=== PATIENT | female | born 1925 | race Caucasian/White ===

== ENCOUNTER → 2016-03-10 | Outpatient (CLI) | payer OTHER ==
[~2016-03-10] MED LIST: ALBU1AER9 INH; CALCTAB7 PO; CYAN500T PO; LACTCAP PO; LEVO125T72 PO; LORA10TA5 PO; MULTTAB PO; RANI150T3 PO; TRAZ150T64 PO
[2016-03-10 17:08] LABS: BASO % 0.4 %; BASO ABS # 0.02 K/uL (0-0.2); COMPLETE YES; EOS % 0.9 %; HEMATOCRIT 35.5 % (37-47); LYMPH % 28.5 %; LYMPH ABS # 1.29 K/uL (1.2-3.4); MEAN CELL VOLUME 89.2 fL (80-100); MEAN CORPUSCULAR HEMOGLOBIN 30.2 pg (25-34); MEAN CORPUSCULAR HGB CONC 33.8 g/dl (32-36); MEAN PLATELET VOLUME 11.7 fL (7.4-10.4); MONO % 13.9 %; NEUT % 56.3 %; PLATELET COUNT 254 K/uL (130-400); RED BLOOD COUNT 3.98 M/uL (4.2-5.4); WHITE BLOOD COUNT 4.52 K/uL (4.8-10.8)
[2016-03-10 17:21] LABS: ALT/SGPT 17 U/L (12-78); BLOOD UREA NITROGEN 11 mg/dl (7-18); CALCIUM 8.9 mg/dl (8.5-10.1); CARBON DIOXIDE 27 mmol/L (21-32); CHLORIDE 99 mmol/L (98-107); CHOLESTEROL 167 mg/dl (0-200); GLUCOSE 97 mg/dl (70-99); SODIUM 135 mmol/L (136-145)
[2016-03-10 17:33] LABS: ALB/GLOB RATIO 0.8 (0.9-2); ALKALINE PHOSPHATASE 85 U/L (45-117); AST/SGOT 22 U/L (15-37); CHOLESTEROL/HDL RATIO 3.4; HDL CHOLESTEROL 49 mg/dl; LDL CHOLESTEROL CALCULATED 95 mg/dl; TRIGLYCERIDES 113 mg/dl (0-150); VERY LOW DENSITY LIPOPROT CALC 23 mg/dl
== END | disposition home or self-care (01) ==
LOC: C.LABBC 15:28
PROVIDERS: ATTEND Family Medicine
DX: E03.9 Hypothyroidism, unspecified (principal); Z13.220 Encounter for screening for lipoid disorders; M81.0 Age-related osteoporosis without current pathological fracture; Z13.0 Encounter for screening for diseases of the blood and blood-forming organs and certain disorders involving the immune mechanism; I10 Essential (primary) hypertension

== ENCOUNTER → 2016-05-13 | Outpatient (CLI) | payer OTHER ==
[~2016-05-13] MED LIST changes: +ACET-1256 PO; +AMLO2.5T PO; +CALC-214 PO; +CHOL20009 PO; +DSY/150 PO; +FLUT0.15 NAE; +METHPOW7 PO; +MISCCAP80 PO; +MULT-506 PO; +SYN100 PO
--- NOTE | 2016-05-13 12:57 | DIAGNOSTIC IMAGING REPORT ---
RIGHT RIBS UNILATERAL MIN 2 VIEWS CLINICAL HISTORY: Rib pain on right side Right pain COMPARISON STUDY: None FINDINGS: Nondisplaced cortical fractures right sixth seventh and eighth ribs. Remaining ribs are unremarkable. No evidence pneumothorax. IMPRESSION: Nondisplaced cortical fractures right sixth seventh and eighth ribs. Electronically signed by: Cory Darby M.D. 05/13/2016 12:55 PM Dictated Date/Time: 05/13/2016 12:54 PM
--- NOTE | 2016-05-13 13:14 | DIAGNOSTIC IMAGING REPORT ---
CHEST 2 VIEWS ROUTINE HISTORY: Rib pain on right side COMPARISON: None. FINDINGS: Mild deformity within the right a few right lateral ribs consistent with age indeterminate fractures. Mild interstitial thickening which is likely chronic. No focal lung consolidations to suggest pneumonia. No evidence for pulmonary edema. The heart is normal in size. No pleural effusions. No pneumothorax. A few mild compression deformities seen within the lower thoracic spine and upper lumbar spine are likely old. IMPRESSION: 1. Mild deformity within a few of the right lateral ribs consistent with age indeterminate fractures. No pneumothorax. 2. Mild interstitial thickening which is likely chronic. 3. Mild compression deformities within the lower thoracic and upper lumbar spine which are likely old. Electronically signed by: Gumaro Luciano M.D. 05/13/2016 1:12 PM Dictated Date/Time: 05/13/2016 1:09 PM
== END | disposition home or self-care (01) ==
LOC: C.RADBC 12:16
PROVIDERS: ATTEND Physician Assistant Medical
DX: R05 Cough (principal); R07.81 Pleurodynia

== ENCOUNTER → 2016-07-13 | Outpatient (CLI) | payer OTHER ==
[~2016-07-13] MED LIST changes: +ASPI325T60 PO
[2016-07-13 17:06] LABS: BASO % 0.5 %; BASO ABS # 0.02 K/uL (0-0.2); COMPLETE YES; EOS % 0.5 %; HEMATOCRIT 35.9 % (37-47); LYMPH % 29.1 %; LYMPH ABS # 1.27 K/uL (1.2-3.4); MEAN CELL VOLUME 91.3 fL (80-100); MEAN CORPUSCULAR HEMOGLOBIN 30.3 pg (25-34); MEAN CORPUSCULAR HGB CONC 33.1 g/dl (32-36); MEAN PLATELET VOLUME 11.5 fL (7.4-10.4); MONO % 9.2 %; NEUT % 60.7 %; PLATELET COUNT 235 K/uL (130-400); RED BLOOD COUNT 3.93 M/uL (4.2-5.4); WHITE BLOOD COUNT 4.36 K/uL (4.8-10.8)
[2016-07-13 17:28] LABS: ALT/SGPT 19 U/L (12-78); AST/SGOT 23 U/L (15-37); BLOOD UREA NITROGEN 12 mg/dl (7-18); BUN/CREATININE RATIO 11.1 (10-20); CALCIUM 8.6 mg/dl (8.5-10.1); CARBON DIOXIDE 27 mmol/L (21-32); CHLORIDE 102 mmol/L (98-107); GLUCOSE 87 mg/dl (70-99); POTASSIUM 4.5 mmol/L (3.5-5.1); SODIUM 136 mmol/L (136-145)
[2016-07-13 17:31] LABS: ALB/GLOB RATIO 0.9 (0.9-2); ALKALINE PHOSPHATASE 96 U/L (45-117)
== END | disposition home or self-care (01) ==
LOC: C.LABBC 12:31
PROVIDERS: ATTEND Family Medicine
DX: M54.5 Low back pain (principal); K62.89 Other specified diseases of anus and rectum; R14.3 Flatulence

== ENCOUNTER → 2016-09-01 | Outpatient (CLI) | payer OTHER ==
[~2016-09-01] MED LIST changes: -ACET-1256 PO; -AMLO2.5T PO; -ASPI325T60 PO; -CALC-214 PO; -CHOL20009 PO; -DSY/150 PO; -FLUT0.15 NAE; -METHPOW7 PO; -MISCCAP80 PO; -MULT-506 PO; -SYN100 PO
--- NOTE | 2016-09-01 12:44 | MAMMOGRAPHY REPORT ---
BILATERAL DIGITAL SCREENING MAMMOGRAM WITH CAD: 09/01/2016 CLINICAL HISTORY: Routine screening. Patient has no complaints. TECHNIQUE: Bilateral CC, MLO, repeat right CC and left MLO views were obtained. Current study was a lso evaluated with a Computer Aided Detection (CAD) system. COMPARISON: Comparison is made to exams dated: 08/28/2015 mammogram, 08/23/2014 mammogram, 07/09/2013 ma mmogram, 07/06/2012 mammogram, 05/11/2011 mammogram, and 04/13/2010 mammogram - [facility] er. BREAST COMPOSITION: There are scattered areas of fibroglandular density in both breasts. FINDINGS: There are scattered benign-appearing calcifications and round microcalcifications in the br easts. Mild vascular calcification. No new suspicious mass, architectural distortion or cluster of microcalcifications is seen. IMPRESSION: ACR BI-RADS CATEGORY 1: NEGATIVE There is no mammographic evidence of malignancy. A 1 year screening mammogram is recommended. The pa tient will receive written notification of the results. Approximately 10% of breast cancers are not detected with mammography. A negative mammographic report should not delay biopsy if a clinically suggestive mass is present. Katie Pearl M.D. ay/:09/01/2016 11:08:14 Maintenance Custodian: Sujata GARCIA)(Jessica)(BD), [facility] letter sent: Normal 1/2 BI-RADS Code: ACR BI-RADS Category 1: Negative
== END | disposition home or self-care (01) ==
LOC: C.MAMM 09:26
PROVIDERS: ATTEND Physician Assistant
DX: Z12.31 Encounter for screening mammogram for malignant neoplasm of breast (principal)